=== PATIENT | female | born 1970 | race Caucasian/White ===

== ENCOUNTER → 2018-06-30 | Outpatient (CLI) | payer OTHER | END | disposition home or self-care (01) | LOC: MA 08:44 | PROC: BH02ZZZ Plain Radiography of Bilateral Breasts (ICD-10-PCS; principal; 2018-06-30) | DX: Z12.31 Encounter for screening mammogram for malignant neoplasm of breast (principal) | CPT/HCPCS: 77067 ==

== ENCOUNTER 2019-02-03 21:13 | Emergency (ER) | payer BC ==
[~2019-02-03] VITALS: Ht 154.9 cm; Wt 84.5 kg
[2019-02-03 21:39] VITALS: Ht 154.9 cm; Wt 84.5 kg
[2019-02-03 22:50] VITALS: BP 129/86
== END 2019-02-03 22:50 | disposition home or self-care (01) ==
LOC: ED 21:13
DX: N61.1 Abscess of the breast and nipple (principal); Z88.0 Allergy status to penicillin; Z98.890 Other specified postprocedural states
CPT/HCPCS: J2270